=== PATIENT | male | born 1955 | race Caucasian/White ===

== ENCOUNTER 2016-12-16 10:25 | Emergency (ER) | payer BC ==
[2016-12-16 12:04] LABS: Urine Bilirubin Negative (Negative); Urine Glucose Negative (Negative); Urine Nitrite Negative (Negative)
--- NOTE | 2016-12-16 12:15 | RAD ---
HISTORY: Low back pain COMPARISONS: None TECHNIQUE: Multiple contiguous axial CT scans were obtained of the lumbar spine without intravenous contrast, with coronal and sagittal multiplanar reformations. FINDINGS: SPINAL CANAL: Evaluation of the central canal is limited on CT technique; however, there is no obvious canalicular mass or epidural hemorrhage. ALIGNMENT: There is a mild levoscoliotic curvature of the spine. There is grade 1 anterolisthesis of L5 on S1. VERTEBRAL BODIES: There is multilevel anterolateral marginal osteophyte formation. The vertebral bodies are preserved in height. JOINTS: There is facet osteoarthritic change most pronounced at L4-L5 and L5-S1 MUSCULATURE: Unremarkable INTERVERTEBRAL DISCS: There is diffuse loss of intervertebral disc height throughout the spine. AXIAL IMAGES: T11-T12: There is no osseous neural foraminal narrowing or central canal stenosis. T12-L1: There is no osseous neural foraminal narrowing or central canal stenosis. L1-L2: There is no osseous neural foraminal narrowing or central canal stenosis. L2-L3: There is mild disc bulge. There is marginal osteophyte dimension of the neural foramina bilaterally. There is no significant osseous neural foraminal narrowing or central canal stenosis. L3-L4: There is bilateral facet hypertrophy. There is mild disc bulge. There is marginal osteophyte formation at the neural foramina bilaterally. There is mild bilateral neural foraminal narrowing. There is no significant central canal stenosis. L4-L5: There is a broad-based disc bulge/rolled disc. There is bilateral facet hypertrophy. There is severe bilateral neural foraminal narrowing. There is moderate narrowing of the central canal. L5-S1: There is bilateral facet hypertrophy. There is marginal osteophyte formation at the neural foramina bilaterally. There is severe bilateral neural foraminal narrowing. There is no significant central canal stenosis. SOFT TISSUES: The visualized soft tissues of the abdomen are unremarkable. OTHER: None IMPRESSION: 1. DEGENERATIVE DISC DISEASE AND OSTEOARTHRITIS. 2. THERE IS MODERATE NARROWING OF THE CENTRAL CANAL AT L4-L5. 3. THERE IS MULTILEVEL NEURAL FORAMINAL NARROWING DESCRIBED ABOVE, MOST PRONOUNCED AT L4-L5 AND L5-S1
--- NOTE | 2016-12-16 12:18 | ED ---
Back Pain - HPI Summary HPI Summary: Patient presents to ED with midline tenderness over low back around L5 which has progressively gotten worse over 2 weeks. He denies urinary symptoms. History of low back pain which usually resolves with OTC NSAIDS. The pain this morning was 10/10. The last 2 weeks, he has had pain in the low back that radiated to the bilateral hips. Denies other symptoms. No history of kidney stones. Denies upper back or neck pain. Pain is 8/10, constant, worse with sitting, better with leaning forward and standing. Has been taking ibuprofen without relief of symptoms. Denies allergies and is otherwise healthy. Denies bladder or bowel dysfunction. - History of Current Complaint Chief Complaint: EDBackInjuryPain Stated Complaint: BACK PAIN Time Seen by Provider: 12/16/16 11:01 Hx Obtained From: Patient Onset/Duration: Sudden Onset Onset/Duration: Started Hours Ago Timing: Constant Back Pain Location: Is Discrete @ - low back Pain Intensity: 10 Pain Scale Used: 0-10 Numeric Character: Sharp Aggravating Symptom(s): Movement Alleviating Symptom(s): Rest, Position Associated Signs And Symptoms: Positive: Negative - Risk Factors AAA Risk Factors: Negative TAD Risk Factors: Negative Cauda Equina Risk Factors: Negative Epidural Abscess Risk Factors: Negative - Allergies/Home Medications Allergies/Adverse Reactions: Allergies Allergy/AdvReac Type Severity Reaction Status Date / Time Morphine Allergy See Comment Verified 08/20/14 04:55 PMH/Surg Hx/FS Hx/Imm Hx Previously Healthy: Yes Endocrine/Hematology History: Denies: Hx Diabetes, Hx Anemia Cardiovascular History: Reports: Hx Coronary Artery Disease, Hx Hypercholesterolemia Denies: Hx Aneurysm, Hx Angina, Hx Angioplasty, Hx Auto Implanted Cardiovert Defib, Hx Cardiac Arrest, Hx Cardiomegaly, Hx Congenital Heart Disease, Hx Congestive Heart Failure, Hx Hypertension Sensory History: Reports: Hx Contacts or Glasses Denies: Hx Eye Injury, Hx Eye Prosthesis, Hx Glaucoma, Hx Legally Blind, Hx Macular Degeneration, Hx Vision Problem, Hx Deafness, Hx Hearing Aid, Hx Hearing Problem, Other Sensory Impairments Opthamlomology History: Reports: Hx Contacts or Glasses Denies: Hx Eye Injury, Hx Eye Prosthesis, Hx Glaucoma, Hx Legally Blind, Hx Macular Degeneration, Hx Vision Problem, Other Sensory Impairments - Surgical History Surgery Procedure, Year, and Place: stent x1 2014. left knee surg - Immunization History Hx Pertussis Vaccination: No Immunizations Up to Date: Unable to Obtain/Confirm Infectious Disease History: No Infectious Disease History: Denies: Traveled Outside the [place] in Last 30 Days - Social History Occupation: Employed Full-time Lives: With Family Alcohol Use: None Hx Substance Use: No Substance Use Type: Reports: None Hx Tobacco Use: No Smoking Status (MU): Former Smoker Have You Smoked in the Last Year: No Review of Systems Constitutional: Negative Eyes: Negative Cardiovascular: Negative Respiratory: Negative Genitourinary: Negative Positive: no symptoms reported, see HPI Positive: Arthralgia Skin: Negative Neurological: Negative All Other Systems Reviewed And Are Negative: Yes Physical Exam Triage Information Reviewed: Yes Vital Signs On Initial Exam: Initial Vitals Temp 97.3 F 12/16/16 10:30 Completion Of Physical Exam Limited Due To: Dementia Appearance: Positive: Well-Appearing, Well-Nourished Skin: Positive: Warm, Skin Color Reflects Adequate Perfusion Head/Face: Positive: Normal Head/Face Inspection Eyes: Positive: EOMI, SHILPI Neck: Positive: Supple, No Lymphadenopathy Respiratory/Lung Sounds: Positive: Clear to Auscultation, Breath Sounds Present Cardiovascular: Positive: Normal Musculoskeletal: Positive: Pain @ - pain in low back which radiates to the groin bilaterally Neurological: Positive: Sensory/Motor Intact, Alert, Oriented to Person Place, Time Psychiatric: Positive: Normal, Affect/Mood Appropriate - Piper Coma Scale Best Eye Response: 4 - Spontaneous Best Motor Response: 6 - Obeys Commands Best Verbal Response: 5 - Oriented Diagnostics - Vital Signs Vital Signs Temp Pulse Resp BP Pulse Ox 12/16/16 10:33 56 20 125/77 97 12/16/16 10:30 97.3 F - Laboratory Lab Results: Lab Results 12/16/16 Range/Units 11:33 Urine Color Straw Urine Appearance Clear Urine pH 7.0 (5-9) Ur Specific [place] 1.005 L (1.010-1.030) Urine Protein Negative (Negative) Urine Ketones Negative (Negative) Urine Blood Negative (Negative) Urine Nitrate Negative (Negative) Urine Bilirubin Negative (Negative) Urine Urobilinogen Negative (Negative) Ur Leukocyte Esterase Negative (Negative) Urine Glucose Negative (Negative) Lab Statement: Any lab studies that have been ordered have been reviewed, and results considered in the medical decision making process. Back Pain Course/Dx - Course Course Of Treatment: Patient sent to CT of spine for low back pain. IMPRESSION: 1. DEGENERATIVE DISC DISEASE AND OSTEOARTHRITIS. 2. THERE IS MODERATE NARROWING OF THE CENTRAL CANAL AT L4-L5. 3. THERE IS MULTILEVEL NEURAL FORAMINAL NARROWING DESCRIBED ABOVE, MOST PRONOUNCED AT. L4-L5 AND L5-S1. Patient given Referral to Dr. Levine, note for work and rx for pain medication and flexeril. Patient encouraged to follow up willy. - Diagnoses Differential Diagnosis/HQI/PQRI: Positive: Compressive Cord Syndrome, Herniated Disc, Strain, Sprain Provider Diagnoses: Bulging disc Discharge - Discharge Plan Condition: Stable Disposition: HOME Prescriptions: Cyclobenzaprine TAB* [Flexeril TAB*] 10 mg PO BID PRN #20 tab MDD 2 PRN Reason: Pain oxyCODONE/Acetamin 10/325(NF) [Percocet 10/325 (NF)] 1 tab PO Q6H PRN #20 tab MDD 4 PRN Reason: Pain Patient Education Materials: Lower Back Exercises (ED), Lumbar Disc Herniation (ED) Forms: *Work Release Referrals: Karly Becker PA [Primary Care Provider] - Werner Levine MD [Medical Doctor] - Additional Instructions: Dx. back pain/ disc bulge Oxycodone-Acetaminophen - This medication may make you drowsy and do not drive or operate machinery with this medication. Only take this medication for breakthrough pain which is not well controlled with over the counter ibuprofen or tylenol. Flexeril: This medication is a muscle relaxant and can help relieve muscle spasms, muscle strain, or pain sensations. Flexeril can cause side effects that may impair your thinking or reactions. Be careful if you drive or do anything that requires you to be awake and alert. Avoid drinking alcohol, which can increase some of the side effects of Flexeril. Ibuprofen 600mg three times daily with meals for discomfort. Return to ED if symptoms worsen or fail to improve, notice worsening swelling, warmth or redness around the joint, develop fever, or pain is uncontrolled with OTC medications. Moist heat to the area for comfort. Warm showers or baths may improve symptoms. It is important to remain mobile as tolerated to prevent stiffening of the joints and delay healing. Follow up with your PCP. If symptoms remain for > 6 weeks, please seek special medical attention from an orthopedic physician.
[2016-12-16 12:55] VITALS: BP 117/64
== END 2016-12-16 12:57 | disposition home or self-care (01) ==
LOC: ED 10:25
DX: M51.26 Other intervertebral disc displacement, lumbar region (principal); M25.552 Pain in left hip; M25.551 Pain in right hip; I25.10 Atherosclerotic heart disease of native coronary artery without angina pectoris; Z95.1 Presence of aortocoronary bypass graft; E78.00 Pure hypercholesterolemia, unspecified; Z88.5 Allergy status to narcotic agent; Z87.891 Personal history of nicotine dependence
CPT/HCPCS: 72131; 81003; 99282

== ENCOUNTER 2017-03-07 20:34 | Observation (INO) | payer BC ==
[2017-03-07 21:05] LABS: Hematocrit 44 % (42-52); Mean Corpuscular HGB Conc 34 g/dl (31-36); Mean Corpuscular Hemoglobin 30 pg (27-31); Mean Corpuscular Volume 87 fL (80-94); Mean Platelet Volume 8 um3 (7.4-10.4); Red Blood Count 5.03 10^6/ul (4.0-5.4); Red Cell Distribution Width 14 % (10.5-15); White Blood Count 6.9 10^3/ul (3.5-10.8)
[2017-03-07 21:16] LABS: Albumin 4.4 g/dL (3.2-5.2); BUN/Creatinine Ratio 22.2 (8-20); Calcium 9.2 mg/dL (8.6-10.3); EGFR African American 125.4 (>60); EGFR Non-African American 97.5 (>60); Globulin 2.4 g/dL (2-4); Total Bilirubin 0.8 mg/dL (0.2-1.0); Total Protein 6.8 g/dL (6.4-8.9)
[2017-03-07] MEDS ORDERED: Nitroglycerin 2% OINT* 1 GM PAK TOPICAL ONE (21:20)
--- NOTE | 2017-03-07 21:24 | RAD ---
Indication: Chest pain since 0600 hours also pain behind shoulder blade. Comparison: No relevant prior exams available on the [facility] [place]ACS for comparison. Technique: Upright AP 2056 hours Report: Clear lungs and pleural spaces. Negative for pneumothorax. Negative for cardiomegaly. Unremarkable central pulmonary vasculature. Mildly tortuous thoracic aorta. IMPRESSION: No evidence for acute intrathoracic disease.
[2017-03-07] MEDS ORDERED: Ondansetron INJ* 2 MG/ML VIAL IV PRN (22:15)
[2017-03-07] MEDS: Acetaminophen TAB* 325 MG PO PRN (23:30)
--- NOTE | 2017-03-08 00:07 | HP ---
CC: Dr. Rose; Dr. Robins * HISTORY AND PHYSICAL: DATE OF ADMISSION: 03/07/17 PRIMARY CARE PROVIDER: Murali Arzate, previously Dr. Rose. SALESPERSON FLOOR COVERINGS: Dr. Robins. CHIEF COMPLAINT: Chest pain. HISTORY OF PRESENT ILLNESS: Mr. George is a 61-year-old male with a known history of coronary artery disease, status post drug-eluting stent placement to the LAD in 2014, who presents to the emergency room with complaints of chest pain. The patient states that he woke up at approximately 6 a.m. to get ready for a massage that was scheduled for 7:30 a.m. He got up, he went into the shower and while in the shower he developed left-sided chest pain as well as pain in his left scapular region. He denies any radiation of the pain down his arm or up to his jaw. He has associated mild shortness of breath and slight nausea. The patient felt as if he could not eat all day long. Initially he was thinking that this likely represented gas discomfort; however, as is persisted throughout the day, the patient's ultimately convinced him to come to the emergency room for evaluation. His symptoms at this time however similar to his ME in July of 2014. The patient believes that his last stress test was approximately 1 year ago. The patient does state that he continues to have chest pain. The pain lasted all day without any change in symptoms. He did get the massage and that did not make any difference in his pain. PAST MEDICAL HISTORY: 1. Coronary artery disease. 2. Hyperlipidemia. PAST SURGICAL HISTORY: Right knee arthroscopy. MEDICATIONS: 1. Aspirin 81 mg p.o. daily. 2. Brilinta 90 mg p.o. b.i.d. 3. Repatha 140 mg subcutaneous q.2 weeks. 4. Nitroglycerin 0.4 mg SL q.5 minutes p.r.n. chest pain. ALLERGIES: MORPHINE and STATINS. FAMILY HISTORY: Mom at age 74 of heart disease. Dad at age of 89, he thinks that was either heart disease or an aneurysm. The patient had one brother of coronary disease and 3 brothers that are living with coronary disease. SOCIAL HISTORY: The patient is a nonsmoker. He does not drink alcohol. 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 He is . He has 5 adopted children. His , Erin is his healthcare proxy. REVIEW OF SYSTEMS: No fevers, chills. His appetite was poor today. He admits to chest pain as above. No lower extremity edema. No palpitations. No cough. No sputum production. Mild shortness of breath as above. Mild nausea as above. No abdominal pain, constipation, diarrhea, or hematochezia. No hematuria. No dysuria. No focal weakness or sensory loss. No sudden changes in vision. No dysphagia. He aches all over, but this is not uncommon for him. No rashes. No anxiety or depression. PHYSICAL EXAMINATION GENERAL: The patient is a well-developed middle-aged male, sitting in the stretcher, in no acute distress. VITAL SIGNS: Blood pressure 137/83, pulse 56, respiration 15, temp 97.9, O2 sat 96% on room air. HEENT: Pupils are equal, round, and reactive to light. Extraocular muscles are intact. Oropharynx is clear. Oral mucosa is moist. The patient does have slight amount of peeling of the skin on the tip of his nose. He states this is chronic. There is no submandibular, cervical, or supraclavicular adenopathy. Thyroid is not enlarged. No thyroid nodules are noted. The patient wears dentures, upper and lower. PULMONARY: Lungs are clear to auscultation bilaterally. CARDIAC: Normal S1, S2. Heart rate is slightly bradycardic, but regular. I do not appreciate any murmurs. There is minimal left lower extremity edema. ABDOMEN: Bowel sounds are present. Abdomen is soft, nontender, and nondistended. MUSCULOSKELETAL: There is no cyanosis or clubbing of the digits. There is full active range of motion of all 4 extremities. SKIN: Warm and dry. There are no rashes. NEURO: Cranial nerves II through XII are grossly intact. Sensation is intact to light touch throughout. Strength is 5/5 and symmetric in both upper and lower extremities bilaterally. PSYCH: The patient is alert. He is oriented x3. Affect appears appropriate. DIAGNOSTIC STUDIES/LAB DATA: WBC 6.9, hemoglobin 15.0, hematocrit 44, platelets 194. Sodium 138, potassium 4.0, chloride 104, CO2 30, BUN 18, creatinine 0.81, glucose 94, calcium 9.2. Bilirubin 0.8, AST 16, ALT 15, alk phos 60. Troponin 0. Albumin 4.4. Lipase is 30. EKG reveals normal sinus rhythm without any acute ST-T wave abnormalities. Chest x- ray reveals no evidence for acute intrathoracic disease. ASSESSMENT AND PLAN: Mr. George is a 61-year-old male with a known history of coronary artery disease, presents to the emergency room with complaints of unrelenting chest pain that has been present all day with associated back discomfort. 1. Chest pain. I do not believe the patient is having an acute myocardial infarction given his troponin is negative despite having pain for the last 16 hours. It is possible however that he has had progression of his underlying coronary artery disease and likely he would benefit from having a stress test. For now, the patient will be admitted and ruled out for an acute coronary syndrome and serial troponins. Tomorrow morning, we will discuss with Dr. Robins, the patient's tube blower, about having an outpatient stress test versus inpatient stress test on Friday. He will continue on his usual dose of aspirin and Brilinta. D-dimer will be added to rule out pulmonary embolism, though I think this seems unlikely given the patient is active at baseline and has had no recent long distance travel. 2. Hyperlipidemia. The patient takes Repatha as an outpatient. He can resume this upon discharge. 3. DVT prophylaxis. According to the Adult Thrombosis Prophylaxis Risk Factor Assessment Guide, the patient has a total risk factor score of 3 making him high risk. He will be placed on heparin 5000 units subcutaneous q.8 hours. 4. Code status is full and again the patient indicates that his is his healthcare proxy. TIME SPENT: Fifty-five minutes were spent admitting this patient. [id number]/[facility] #: [id number] GISELLE
[2017-03-08 03:33] LABS: HDL Cholesterol 50.3 mg/dL
[2017-03-08] MEDS: Acetaminophen TAB* 325 MG PO PRN (05:41)
[2017-03-08] MEDS ORDERED: Heparin VIAL(*) 5000 UNITS/ML VIAL (FIVE THOUSAND) SUBCUT SCH (06:00)
--- NOTE | 2017-03-08 06:57 | ED ---
Bernice Lopez Rebecca, scribed for Zainab Hamilton MD on 03/07/17 at 2053 . HPI Chest Pain - HPI Summary HPI Summary: Pt is a 61 y/o M who presents to ED c/o CP. Pain began this morning at 0600 upon waking up and is located in the left anterior region with radiation to the left shoulder blade. Pain is currently moderate, ranked 6/10. Pt states that initially it "seemed like gas." Took 3 81 mg ASA approximately 30 minutes PATIENT SUPPORT TECH. Sx aggravated and alleviated by nothing. Additionally c/o mild SOB. reports that he was cutting wood last weekend. Warehouse Administrative Assistant is Dr. Robins. PMHx CAD with MS 1.5 years ago and current pain is slightly similar to that time. FHx CAD. PSHx cardiac stents. Pt reports he typically bruises easily. - History of Current Complaint Chief Complaint: EDChestPainROMI Time Seen by Provider: 03/07/17 20:44 Hx Obtained From: Patient Onset/Duration: Started Hours Ago, Still Present Time of Onset: 06:00 Current Severity: Moderate Pain Intensity: 6 Pain Scale Used: 0-10 Numeric Chest Pain Location: Left Anterior Chest Pain Radiates: Yes Chest Pain Radiates To:: Back - Left Shoulder blade Aggravating Factor(s): Nothing Alleviating Factor(s): Nothing Associated Signs and Symptoms: Positive: Shortness of Breath - Allergy/Home Medications Allergies/Adverse Reactions: Allergies Allergy/AdvReac Type Severity Reaction Status Date / Time Morphine Allergy See Comment Verified 03/07/17 20:43 Statins Allergy See Comment Verified 03/07/17 23:29 Home Medications: Home Medications Evolocumab [Repatha Sureclick] 140 mg SUBCUT .[id number] 03/07/17 [History Confirmed 03/07/17] Nitroglycerin TAB 0.4 MG* 0.4 mg SL .Q5MIN PRN 03/07/17 [History Confirmed 03/07] PMH/Surg Hx/FS Hx/Imm Hx Endocrine/Hematology History: Denies: Hx Diabetes, Hx Anemia Cardiovascular History: Reports: Hx Coronary Artery Disease, Hx Hypercholesterolemia Denies: Hx Aneurysm, Hx Angina, Hx Angioplasty, Hx Auto Implanted Cardiovert Defib, Hx Cardiac Arrest, Hx Cardiomegaly, Hx Congenital Heart Disease, Hx Congestive Heart Failure, Hx Hypertension Sensory History: Reports: Hx Contacts or Glasses Denies: Hx Eye Injury, Hx Eye Prosthesis, Hx Glaucoma, Hx Legally Blind, Hx Macular Degeneration, Hx Vision Problem, Hx Deafness, Hx Hearing Aid, Hx Hearing Problem, Other Sensory Impairments Opthamlomology History: Reports: Hx Contacts or Glasses Denies: Hx Eye Injury, Hx Eye Prosthesis, Hx Glaucoma, Hx Legally Blind, Hx Macular Degeneration, Hx Vision Problem, Other Sensory Impairments - Surgical History Surgery Procedure, Year, and Place: stent x1 2015. left knee surg Infectious Disease History: No Infectious Disease History: Denies: Traveled Outside the [place] in Last 30 Days - Social History Alcohol Use: None Hx Substance Use: No Substance Use Type: Reports: None Hx Tobacco Use: No Smoking Status (MU): Former Smoker Have You Smoked in the Last Year: No Review of Systems Negative: Blurred Vision, Diplopia Negative: Ear Ache Positive: Chest Pain Positive: Shortness Of Breath Negative: Abdominal Pain, Vomiting, Diarrhea Negative: dysuria, hematuria Positive: Other - NEGATIVE: lower back pain and neck pain Negative: Rash, Bruising Negative: Headache All Other Systems Reviewed And Are Negative: Yes Physical Exam - Summary Physical Exam Summary: Appearance: Alert, conversive, nontoxic appearing Skin: Warm, dry, no mottling, no rashes, no contusions HEENT: EOMI, PERRL, moist mucous membranes Neck: No masses on the neck, supple Respiratory: Clear to auscultation, breath sounds present, no rales, no rhonchi , no wheezes Cardiovascular: RRR, pulses are symmetrical in both lower and upper extremities , no midline incision Abdomen: Soft, non-tender Bowel Sounds: Present Musculoskeletal: No CVA tenderness, no obvious deformity, moving all extremities in a grossly normal manner Neurological: A&Ox3, CN II-XII Intact, moving all extremities symmetrically Psychiatric: Normal affect and mood Triage Information Reviewed: Yes Vital Signs On Initial Exam: Initial Vitals Temp Pulse Resp BP Pulse Ox 97.9 F 53 14 163/84 97 03/07/17 20:35 03/07/17 20:35 03/07/17 20:35 03/07/17 20:35 03/07/17 20:35 Vital Signs Reviewed: Yes Diagnostics - Vital Signs Vital Signs Temp Pulse Resp BP Pulse Ox 03/07/17 20:35 97.9 F 53 14 163/84 97 - Laboratory Result Diagrams: 03/07/17 20:50 03/07/17 20:50 Lab Statement: Any lab studies that have been ordered have been reviewed, and results considered in the medical decision making process. - Radiology CXR Xray Interpretation: No Acute Changes - No evidence for acute intrathoracic disease. ED physician reviewed radiology report and agrees. Radiology Interpretation Completed By: Radiologist - EKG 2047 Cardiac Rate: Bradycardia - 53 bpm EKG Rhythm: Sinus Bradycardia ST Segment: Normal EKG Interpretation: No AMI Chest Pain Course/Dx - Course Assessment/Plan: Pt is a 61 y/o M who presents to ED c/o left anterior CP since this morning at 0600 upon waking up, with radiation to the left shoulder blade. Pain is currently moderate, ranked 6/10. Pt states that initially it "seemed like gas." Took 3 81 mg ASA approximately 30 minutes PATIENT SUPPORT TECH. Additionally c/o mild SOB. Warehouse Administrative Assistant is Dr. Robins. PMHx CAD with MS 1.5 years ago and current pain is slightly similar to that time. FHx CAD. PSHx cardiac stents. CXR reveals no acute findings. EKG is sinus joe with no AMI. Blood work within normal limits. He has a strong cardiac PMHx and FHx. Pt took ASA at home, so we gave him NTG in the ED course. Discussed care of pt with Dr. Parsons who accepts pt for admission. Pt will be admitted to hospitalist services. He is agreeable with this plan. Elevated BP noted. - Diagnoses Provider Diagnoses: DVT (deep venous thrombosis) - Provider Notifications Discussed Care Of Patient With: Jennifer Parsons Time Discussed With Above Provider: 21:26 Instructed by Provider To: Other - Accepts pt for admission. Discharge - Discharge Plan Condition: Stable Disposition: ADMITTED TO [facility] The documentation as recorded by the Bernice mayers Rebecca accurately reflects the service I personally performed and the decisions made by , Zainab Hamilton MD.
[2017-03-08] MEDS ORDERED: Ticagrelor* 90 MG TAB PO SCH (09:00)
[2017-03-08] MEDS ORDERED: Aspirin EC Low Dose* 81 MG TAB.EC PO SCH (09:00)
[2017-03-08 15:17] VITALS: BP 110/72
[2017-03-08] MEDS ORDERED: Atorvastatin* 40 MG TAB PO SCH (21:00)
--- NOTE | 2017-03-09 01:46 | DS ---
CC: Dr. Robins; Karly Becker, [facility] DISCHARGE SUMMARY: DATE OF ADMISSION: 03/07/17 DATE OF DISCHARGE: 03/08/17 HISTORY OF PRESENT ILLNESS: This 61-year-old man presented with left-sided chest pain. He got up a t 6 a.m., about a little while later he was taking a shower and developed left-sided chest pain and pain in the left scapular area. The pain really persisted all day and was actually still present wi th small degree at the time of discharge. He did not take nitroglycerin. 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 This sometimes involves strenuous activity. This has never bothered him before. He also occasio amy has frequent walks of a mile or so, which do not bother him either. Otherwise, he really has not had any other chest pain. He does not recall any unusual incident recently. The patient was admitted to the telemetry unit. He had 3 troponin levels, all of which were within normal limits. He had an EKG on the day of admission and shortly before discharge. There are no si gnificant findings. The patient will call back to Julienne's office on Friday morning 03/10/17 to arrange for an expedi jackie stress test. He will not return to work until after the stress test is completed. He was given a work excuse through 03/11/17. FINAL DIAGNOSES: 1. Atypical chest pain. 2. History of coronary artery disease. DISCHARGE MEDICATIONS: 1. Nitroglycerin 0.4 mg sublingual every 5 minutes p.r.n. 2. Evolocumab 140 mg subcu every 2 weeks. 3. Ticagrelor 90 mg b.i.d. 4. Aspirin 81 mg b.i.d. [id number]/[facility] #: [id number]
== END 2017-03-08 15:00 | disposition home or self-care (01) ==
LOC: ED 20:34 → MEDTELE 21:27
PROVIDERS: ADMIT Hospitalist; ATTEND Internal Medicine
DX: R07.89 Other chest pain (principal); R06.02 Shortness of breath; I25.10 Atherosclerotic heart disease of native coronary artery without angina pectoris; R00.1 Bradycardia, unspecified; Z95.5 Presence of coronary angioplasty implant and graft; E78.5 Hyperlipidemia, unspecified; R11.0 Nausea
CPT/HCPCS: 36415; 71010; 80053; 80061; 83690; 84484; 85025; 85379; 93005; 96374; 99284; A9270-GY; G0378; J1644

== ENCOUNTER 2017-10-06 09:58 | Emergency (ER) | payer BC ==
[2017-10-06 10:36] VITALS: BP 142/87
--- NOTE | 2017-10-06 11:43 | RAD ---
HISTORY: Tender proximal and distal fibula, trauma COMPARISONS: None VIEWS: 3, Frontal and lateral views of the left foreleg FINDINGS: BONE DENSITY: Normal. BONES: There is no displaced fracture. JOINTS: There is no arthropathy. ALIGNMENT: There is no dislocation. SOFT TISSUES: Unremarkable. OTHER FINDINGS: None. IMPRESSION: NO ACUTE OSSEOUS INJURY. IF SYMPTOMS PERSIST, RECOMMEND REPEAT IMAGING.
--- NOTE | 2017-10-06 12:03 | UC ---
Knee Pain HPI - HPI Summary HPI Summary: 2 weeks ago pt was walking upstairs while carrying a heavy box. when taking a step up, pt felt a twang in his left knee. pt states that he knew he did something but did not feel pain until that evening. pt's knee was mildly achy for few days but improved until 2 days ago when he had a fall from a chair. during fall he felt knee twist. since then knee has again been achy. radiating to dis 1/3 of fibula. worse with wt bearing/walking(3/10) . better with rest. - History of Current Complaint Chief Complaint: UCLowerExtremity Stated Complaint: LEFT KNEE INJURY Time Seen by Provider: 10/06/17 11:02 Hx Obtained From: Patient Onset/Duration: Sudden Onset, Lasting Weeks, Worse Since - 2 days ago Severity Initially: Moderate Severity Currently: Moderate Pain Intensity: 3 Character: Aching Aggravating Factor(s): Movement, Weight Bearing, Stairs Alleviating Factor(s): Rest Associated Signs And Symptoms: Positive: Negative Able to Bear Weight: Yes - Allergies/Home Medications Allergies/Adverse Reactions: Allergies Allergy/AdvReac Type Severity Reaction Status Date / Time morphine Allergy Hallucinati Verified 10/06/17 10:33 ons Lzlsqqd-Yjz-Xus Reductase Allergy Muscle Ache Verified 10/06/17 10:33 Inhibitor Home Medications: Home Medications Clopidogrel TAB* [Plavix TAB*] 75 mg PO DAILY 10/06/17 [History Confirmed ] PMH/Surg Hx/FS Hx/Imm Hx Cardiovascular History: Cardiac Disease, Myocardial Infarction - Surgical History Surgical History: Yes Surgery Procedure, Year, and Place: stent x1 2014. left knee surg - Family History Known Family History: Positive: Cardiac Disease, Hypertension, Diabetes - Social History Lives: With Family Alcohol Use: None Substance Use Type: None Smoking Status (MU): Former Smoker Have You Smoked in the Last Year: No When Did the Patient Quit Smoking/Using Tobacco: 30 years ago - Immunization History Most Recent Influenza Vaccination: has not received Most Recent Tetanus Shot: up to date Most Recent Pneumonia Vaccination: has not received Review of Systems Constitutional: Negative Skin: Negative Respiratory: Negative Cardiovascular: Negative Gastrointestinal: Negative Motor: Negative Neurovascular: Negative Musculoskeletal: Other: - knee pain Neurological: Negative Psychological: Negative All Other Systems Reviewed And Are Negative: Yes Physical Exam Triage Information Reviewed: Yes Appearance: Well-Appearing, No Pain Distress, Obese Vital Signs: Initial Vital Signs Temp 97.3 F 10/06/17 10:28 Pulse 58 10/06/17 10:28 Resp 17 10/06/17 10:28 BP 142/87 10/06/17 10:28 Pulse Ox 98 10/06/17 10:28 Vital Signs Reviewed: Yes Eyes: Positive: Conjunctiva Clear. Negative: Discharge ENT: Positive: Hearing grossly normal. Negative: Muffled voice, Hoarse voice Neck exam: Normal Respiratory: Positive: Lungs clear, Normal breath sounds, No respiratory distress, No accessory muscle use Cardiovascular: Positive: RRR, No Murmur, Pulses Normal Musculoskeletal: Positive: Other: - normal inspection/rom. tender to palpation over lcl and mcl, and distal 1/3 if fibular shaft. no lig laxity. neg beulah' s Neurological: Positive: Alert, Muscle Tone Normal Psychological: Positive: Age Appropriate Behavior Skin Exam: Normal Knee Pain Course/Dx - Differential Dx/Diagnosis Provider Diagnoses: knee sprain Discharge - Sign-Out/Discharge Documenting (check all that apply): Discharge/Admit/Transfer - Discharge Plan Condition: Stable Disposition: HOME Patient Education Materials: Knee Sprain (ED), Knee Immobilizer (ED) Referrals: Karly Becker PA [Primary Care Provider] - (Follow up in 3-5 days for re- evaluation.) - Billing Disposition and Condition Condition: STABLE Disposition: HOME
== END 2017-10-06 12:09 | disposition home or self-care (01) ==
LOC: UCCORT 09:58
DX: S83.92XA Sprain of unspecified site of left knee, initial encounter (principal); X50.0XXA Overexertion from strenuous movement or load, initial encounter; Y93.01 Activity, walking, marching and hiking; Y92.9 Unspecified place or not applicable; W08.XXXA Fall from other furniture, initial encounter; Y93.9 Activity, unspecified; Z88.5 Allergy status to narcotic agent; Z88.8 Allergy status to other drugs, medicaments and biological substances
CPT/HCPCS: 99212; G0463

== ENCOUNTER 2017-11-20 07:13 | Observation (INO) | payer BC ==
[2017-11-20 08:16] LABS: ABS Basophils 0.1 10^3/ul (0-0.2); ABS Eosinophils 0.1 10^3/ul (0-0.6); ABS Lymphocytes 1.4 10^3/ul (1.0-4.8); ABS Monocytes 0.6 10^3/ul (0-0.8); ABS Neutrophils 3.3 10^3/ul (1.5-7.7); ABS Nucleated RBC 0 10^3/ul; Eosinophil % 2.5 % (0-6); Hematocrit 42 % (42-52); Hemoglobin 14.6 g/dl (14.0-18.0); Lymphocyte % 24.8 % (25-47); Mean Corpuscular HGB Conc 35 g/dl (31-36); Mean Corpuscular Hemoglobin 30 pg (27-31); Mean Corpuscular Volume 86 fL (80-94); Mean Platelet Volume 7.8 um3 (7.4-10.4); Nucleated Red Blood Cells % 0.1; Platelet Count 165 10^3/ul (150-450); Red Blood Count 4.94 10^6/ul (4.00-5.40); Red Cell Distribution Width 13 % (10.5-15); White Blood Count 5.5 10^3/ul (3.5-10.8)
[2017-11-20 08:23] LABS: INR 0.85 (0.77-1.02)
[2017-11-20 08:28] LABS: EGFR Non-African American 86.4 (>60)
--- NOTE | 2017-11-20 08:37 | RAD ---
INDICATION: Left arm paresthesias COMPARISON: None TECHNIQUE: Noncontrast axial source images were acquired from the skull base to the vertex. FINDINGS: Ventricles/sulci: The ventricles and cisterns are normal in size and configuration for age. Brain parenchyma: There is no focal parenchymal finding, evidence of intracranial mass, or intracranial mass effect. Intracranial hemorrhage:None. Extra-axial spaces: There are no abnormal extra axial fluid collections or evidence of extra-axial mass. Calvarium: There is no calvarial fracture or other calvarial abnormality. Scalp: There is no evidence of scalp or extracalvarial soft tissue abnormality. Paranasal sinuses/mastoid: The paranasal sinuses and mastoid air cells are clear. Other: None. IMPRESSION: NEGATIVE NONCONTRAST CT EXAMINATION
--- NOTE | 2017-11-20 09:09 | RAD ---
INDICATION: Chest pain COMPARISON: March 07, 2017 TECHNIQUE: An AP portable view obtained at 0853 hours is submitted. FINDINGS: Bones/Soft Tissues: There are no acute bony findings. Cardiomediastinal: The cardiomediastinal silhouette is normal. Lungs: There are no infiltrates. Pleura: There are no pleural effusions. Other: None IMPRESSION: NO ACTIVE DISEASE.
[2017-11-20] MEDS ORDERED: Al Hydrox/Mg Hydrox/Simet LIQ* 30 ML UDC PO PRN (12:06)
[2017-11-20] MEDS ORDERED: Ondansetron INJ* 2 MG/ML VIAL IV PRN (12:06)
[2017-11-20] MEDS ORDERED: Acetaminophen TAB* 325 MG PO PRN (12:06)
[2017-11-20] MEDS ORDERED: Magnesium Hydroxide LIQ* 30 ML UDC PO PRN (12:06)
[2017-11-20] MEDS ORDERED: Morphine INJ* 2 MG/ML 1 ML CARPUJECT IV PRN (12:06)
[2017-11-20] MEDS ORDERED: Albuterol 2.5 MG/3 ML NEB.SOL* (0.083%) INH PRN (12:06)
[2017-11-20] MEDS ORDERED: Nitroglycerin TAB 0.4 MG* 0.4 MG TAB SL PRN (12:12)
[2017-11-20] MEDS ORDERED: NS 0.9% 1000 ML* 1,000 ML IV SCH (12:15)
--- NOTE | 2017-11-20 13:34 | RAD ---
Indication: Weakness. INDICATION: Weakness for 2 weeks. Sagittal and axial T1, axial T2, FLAIR, diffusion and susceptibility weighted images of the brain were obtained. Ventricular structures are midline. No midline shift is noted. The extraction spaces are unremarkable. There is no evidence of intracranial mass or hemorrhage. No other high or low signal lesions are identified. No restriction of diffusion is noted. No evidence of susceptibility artifact is noted. The FLAIR images demonstrate no evidence of vasogenic edema. There may be tiny punctate areas of some cortical white matter signal abnormalities which are nonspecific. Orbits and paranasal sinuses as well as mastoid air cells are unremarkable. IMPRESSION: No evidence of restriction of diffusion is noted. Punctate nonspecific areas of signal abnormality in the subcortical white matter scattered in both cerebral hemispheres.
[2017-11-20] MEDS ORDERED: Perflutren Lipid Microsphere* 3 ML VIAL ONE (15:04)
--- NOTE | 2017-11-20 15:07 | HP ---
AMENDED REPORT NOW INCLUDES COSIGNER DESIGNATION - ESIGNED BEFORE ADJUSTMENT CC: Dr. Robins.* ADMISSION HISTORY AND PHYSICAL: DATE OF ADMISSION: 11/20/17 PATIENT OF ATTENDING HOSPITALIST: Dr. Von Judge.* (DICTATED BY ELOY MCCURDY) PRIMARY CARE PROVIDER: Murali Arzate. ELECTROLOG OPERATOR: Dr. Robins. CHIEF COMPLAINT: Chest pain and left arm weakness. HISTORY OF PRESENT ILLNESS: Mr. George is a pleasant 61-year-old gentleman who carries past medical history significant for coronary artery disease for which he had cardiac catheterization with drug-eluting stent placement to the LAD back in 2014, who presented to the emergency room earlier this morning with complaints of chest pain to the left side that started last night. The patient notes that his chest pain is not sharp or similar to prior episodes of suspected MIs; however, it is more like chest tightness associated with some dyspnea and also feeling a little bit of palpitation. He also came complaining of left arm numbness and tingling for the past 2 weeks with associated weakness ; however, has been able to move his arm and working with no complaints. He denies any shuffled gait, syncope, headache, double vision, drooling, or slurred speech. He has no history of TIAs or strokes in the past. The patient was seen last in the hospital back in February of last year presenting with similar complaints of chest pain, for which he had a cardiac workup and discharged the following day to follow up with Dr. Robins for an outpatient stress test. The patient eventually went to [facility] in [place] and had a stress test done last fall that he reports was negative. I do not have any additional records from [facility] to provide any details but again, the patient reports having a good stress test last fall. He has seen Dr. Robins in the past and actually is scheduled to see him for a followup next week. He has been maintained on aspirin and Plavix since his cardiac catheterization with 2 stents placed 3 years ago. During his ED evaluation, the patient was noted to actually have slight bradycardia with heart rate in the 50s; however, his EKG showed no evidence of ST changes or any suspicious cardiac ischemia. He had laboratory workup that revealed a flat troponin. He had a CT scan of the brain that revealed no evidence of hemorrhage or acute changes and also an MRI of the brain was ordered and the results are pending at the time of admission. He denies any significant chest pain at this time. He did not take any nitro and did not require any pain medication in the ED. Given his cardiac history as well as the new onset of his left arm numbness, weakness, and tingling that seems to be more intermittent, we were asked to see the patient for further evaluation and to consider an observation admission for further cardiac workup. The patient is very vague upon questioning more about his left upper extremity symptoms. 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 It appears that his weakness is more of muscular origin since he has been able to move his upper extremity, but sometimes reports weakness if not used. PAST MEDICAL HISTORY: As mentioned above, significant for: 1. Coronary artery disease with previous cardiac catheterization and 2 stents placement back in 2014. 2. Hyperlipidemia. PAST SURGICAL HISTORY: Significant for right knee arthroscopy. MEDICATIONS: His medications at home include: 1. Norvasc 2.5 mg p.o. daily. 2. Aspirin 81 mg p.o. daily. 3. Plavix 75 mg p.o. daily. 4. Repatha 140 mg subcu injection every 2 weeks. ALLERGIES: He is allergic to MORPHINE and STATIN. SOCIAL HISTORY: The patient is nonsmoker who does not drink alcohol. 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 He is and has 5 adopted children, all grown up and his , Erin is the healthcare proxy carrier. FAMILY HISTORY: Significant for heart disease in his mother who at age 74 , and also his father has history of heart disease, possibly aneurysm. He also has a brother who is from coronary artery disease and 3 other brothers who have history of coronary artery disease as well. REVIEW OF SYSTEMS: See HPI. Otherwise, 14-point reviews of systems were evaluated and they were essentially negative. PHYSICAL EXAMINATION GENERAL: He is a pleasant healthy-appearing, upper middle aged gentleman, in no acute distress or discomfort at the time of admission. VITAL SIGNS: Revealed a heart rate of 52, temperature of 98.2, blood pressure of 128/87, respirations of 12 with O2 sat of 95% on room air. HEENT: Head is normocephalic, atraumatic. Sclerae anicteric. PERRLA. EOMs intact. Oropharynx is pink and moist. NECK: Supple. Trachea midline. No cervical adenopathy, thyromegaly, or JVD. LUNGS: Clear to auscultation bilaterally. HEART: Regular rate and rhythm. Normal S1 and S2 without rubs, murmurs, or gallops. BACK: With normal curvature. No CVA tenderness. ABDOMEN: Soft, nontender, and nondistended. No hernias, masses, or hepatosplenomegaly. RECTAL: Exam deferred at this time. EXTREMITIES: Without cyanosis, clubbing, or edema. NEUROLOGIC: He is alert and oriented x4, and neurological exam was grossly normal. Handgrip was equal bilaterally. His sensation was intact throughout. Tongue was midline. LABORATORY WORKUP: CBC with white count of 5500, hemoglobin 14.6, hematocrit 42, and platelets of 165. Chemistry with sodium of 140, potassium 3.9, chloride 107, CO2 27, BUN 19, and creatinine of 0.9; glucose is 103, lactic acid 1.0, magnesium 1.9. LFTs within normal limits, and troponin was 0.00. His TSH is 1.31. ACCESSORY DIAGNOSTIC DATA: EKG showed sinus bradycardia, no evidence of ST changes. Chest x-ray with no acute findings; and brain CT with no evidence of intracranial hemorrhage noted. He also will have a brain MRI that is pending at the time of admission. IMPRESSION: A 61-year-old gentleman with past medical history significant for coronary artery disease and hyperlipidemia, who had cardiac catheterization with 2 drug-eluting stents placement to the left anterior descending artery back in 2014 as well as recent stress test last fall at [facility] that apparently was negative, who presented to the emergency room today with a 1-day history of intermittent left chest pain with associated palpitations and a 2 weeks' history of left upper extremity weakness, numbness, and tingling. ASSESSMENT AND PLAN: 1. Chest pain. The patient does not appear to have any evidence of acute myocardial infarction at this point given his EKG and troponin findings; however , given his significant coronary artery disease history, he will be admitted for observation at the telemetry unit. We will obtain a trending troponin, repeat EKG in the morning, and likely to repeat his stress test in the morning as well. The case will be discussed with Dr. Robins at some point if there is any positive finding. The patient has an appointment with him next week for a followup that he would likely to keep if all workup is negative and he ends up being discharged to home tomorrow. I will also check a D-dimer today to rule out any possibility of pulmonary embolism; however, the patient only reports occasional dyspnea with exertion, but not at rest and he has been having good oxygen saturation during his stay in the emergency department. 2. Left upper extremity weakness, numbness, and tingling. This issue has been going on for 2 weeks and very intermittent and vague in presentation. I do not believe that the patient has experienced any evidence of stroke or transient ischemic attacks. He uses his upper extremities during work for manual labor including heavy weightlifting. He is able to move his arm and lift weight; however, during rest sometimes, he feels some numbness and tingling in the ends. He denies any history of diabetes and his blood glucose is 103 at fasting level. I do not suspect any neurological deficit and I performed a quick NIH Stroke Scale with a score of [address] scan of the brain is negative and we will await the MRI findings. I will also add a neurological check for the patient to monitor him closely, to see if there are any changes overnight. 3. Hyperlipidemia. The patient is taking Repatha as an outpatient and will resume it on discharge. 4. DVT prophylaxis. He is at moderate risk at this time. We will cover him with sequential compression devices for now. 5. Coronary artery disease. I will continue the patient on aspirin for now and I will review keeping him on Plavix with my attending, since there might be possibility for an intervention tomorrow if he had a positive stress test. 6. Code status. He is a full code and his is the healthcare proxy carrier. 7. Disposition. Observation admission to Telemetry for trending troponins, repeat EKG, and stress test in the morning. TIME SPENT: Approximately 60 minutes were spent admitting this patient, with greater than 50% on [id number] taking history and performing physical exam. ELOY MCCURDY [id number]/[facility] #: [id number] GISELLE
--- NOTE | 2017-11-20 18:21 | ECHO ---
Patient: SUSU FISHER [facility] Rec#: [id number] : 1955 Date: 11/20/2017 Age: 61y Height: 172.72 cm / 68.0 in Weight: 113.4 kg / 249.9 lbs Sex: M BSA: 2.25 Room#: [facility] Admit Date#: 11/20/2017 Type: Inpatient Referring: Houston Pope Reading: Sabas Landon MD Astrophysics Professor: Amparo Gamble RDCS CC: Deborah Williamson Transthoracic Echocardiogram Indication: Chest Pain BP: 119/81 HR: 73 Rhythm: NSR Findings History: HLD, CAD, s/p PCI, former smoker. Technical Comments: The study is technically limited due to patient body habitus. Completed at 1600. Left Ventricle: The left ventricular chamber size is normal. Mild concentric left ventricular hypertrophy is observed. There is normal left ventricular systolic function. The estimated ejection fraction is 60-65%. There is septal flattening of the interventricular septum consistent with right ventricular volume or pressure overload. Abnormal left ventricular diastolic function is observed. Abnormal left ventricular diastolic filling is observed, consistent with impaired relaxation. Left Atrium: The left atrium is mildly dilated. Right Ventricle: Moderator Band present. The right ventricle is moderately dilated. The right ventricular global systolic function is low normal. Right Atrium: The right atrium is mildly dilated. Aortic Valve: The aortic valve is trileaflet. The aortic valve leaflets are mildly thickened. There is no evidence of aortic regurgitation. There is no evidence of aortic stenosis. Mitral Valve: The mitral valve leaflets are mildly thickened. There is a trace of mitral regurgitation. There is no evidence of mitral stenosis. Tricuspid Valve: The tricuspid valve leaflets are normal. There is trace to mild tricuspid regurgitation. The right ventricular systolic pressure is estimated at 24 mmHg. There is evidence that pulmonary hypertension may be underestimated. There is no tricuspid stenosis. Pulmonic Valve: The pulmonic valve appears normal. There is a trace pulmonic regurgitation. There is no pulmonic stenosis. Pericardium: There is no significant pericardial effusion. A pericardial fat pad is visualized. Aorta: There is no dilatation of the ascending aorta. There is no dilatation of the aortic arch. The aortic root is normal in size. Pulmonary Artery: The main pulmonary artery appears normal. Venous: The inferior vena cava appears normal in size. There is a greater than 50% respiratory change in the inferior vena cava dimension. Contrast: Definity was used to optimize study. 5 mL of diluted Definity was utilized. Intravenous contrast was used to enhance endocardial border definition. Conclusions The study is technically limited due to patient body habitus. Mild concentric left ventricular hypertrophy is observed. The estimated ejection fraction is 60-65%. There is septal flattening of the interventricular septum consistent with right ventricular volume or pressure overload. Abnormal left ventricular diastolic filling is observed, consistent with impaired relaxation. The left atrium is mildly dilated. The right ventricle is moderately dilated. The right ventricular global systolic function is low normal. The right atrium is mildly dilated. There is a trace of mitral regurgitation. There is trace to mild tricuspid regurgitation. Similar to 07/2014. Measurements Name Value Normal Range RVIDd (AP) 2D 3.7 cm (0.9 - 2.6) RVDdMajor (2D) 5.9 cm (2.2 - 4.4) RAd ISD 4CH 5.3 cm (3.4 - 4.9) RA (A4C)W 5.1 cm (2.9 - 4.6) IVSd (2D) 1.2 cm (0.6 - 1) LVPWd (2D) 1.2 cm (0.6 - 1) LVIDd (2D) 4.4 cm (3.6 - 5.4) LVIDs (2D) 2.3 cm - LV FS (2D) 49 % (25 - 45) Aortic Annulus 2 cm (1.4 - 2.6) Ao root diameter (2D) 3 cm (2.1 - 3.5) Ascending Ao 3 cm (2.1 - 3.4) Aortic arch 2.6 cm (1.8 - 3.4) LA dimension (AP) 2D 4.6 cm (2.3 - 3.8) LAd ISD 4CH 5.7 cm (2.9 - 5.3) LA ISD 4CH W 4.6 cm (2.5 - 4.5) Name Value Normal Range LA ESV SP 4CH (A/L) 70 ml - LA ESV SP 2CH (A/L) 56 ml - LA ESV BP (A/L) 66 ml - LA ESV BP (A/L) index 29 ml/m2 - LA ESV SP 4CH (MOD) 65 ml - LA ESV SP 2CH (MOD) 55 ml - Name Value Normal Range MV E-wave Vmax 0.65 m/sec - MV deceleration time 289 msec - MV A-wave Vmax 0.94 m/sec - MV E:A ratio 0.69 ratio - LV septal e' Vmax 0.08 m/sec - LV lateral e' Vmax 0.09 m/sec - LV E:e' septal ratio 8.13 ratio - LV E:e' lateral ratio 7.22 ratio - Name Value Normal Range AV Vmax 1.4 m/sec - AV VTI 26.27 cm - AV peak gradient 7.56 mmHg - AV mean gradient 4.26 mmHg - LVOT Vmax 0.93 m/sec - LVOT VTI 17.42 cm - LVOT peak gradient 3.47 mmHg - LVOT mean gradient 1.86 mmHg - OLEG Vmax 1.1 m/sec - Name Value Normal Range TR Vmax 2.3 m/sec - TR peak gradient 21 mmHg - RAP 3 mmHg - RVSP 24 mmHg - IVC diameter 1.8 cm - Name Value Normal Range PV Vmax 1.22 m/sec - PV peak gradient 6.04 mmHg -
--- NOTE | 2017-11-20 18:33 | ED ---
Rolando Lopez Angela, scribed for Jevon Mayo MD on 11/20/17 at 0737 . HPI Chest Pain - HPI Summary HPI Summary: This pt is a 61 y/o male presenting to [facility] c/o left sided chest pain since last night. He describes chest pain as tightness and pressure. Pt also reports heart palpitations, characterized as fast heart rate since 4 days ago. He states numbness and tingling on his left side, primarily in his left arm, since a couple of weeks ago. He notes this does not prevent him from doing anything, although he did sprain his left knee 2 months ago and when he steps he feels "like there's a spring in it." Additionally reports SOB and diaphoresis. Denies nausea, dizziness, lightheadedness, fever. He notes that if he drinks coffee his symptoms are aggravated. PMHx includes MS (4 years ago) s/p stent. Pt is currently on Plavix, aspirin, Norvasc, and Rebatha . 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 His PCP is in [place]. FHx of cardiac disease in mother and brothers (around age 50). - History of Current Complaint Hx Obtained From: Patient Onset/Duration: Started Days Ago, Still Present Timing: Lasting Days Current Severity: Mild Pain Intensity: 3 Pain Scale Used: 0-10 Numeric Chest Pain Location: Left Anterior Chest Pain Radiates: No Character: Pressure/Squeezing - Pressure, Tightness Aggravating Factor(s): Nothing Alleviating Factor(s): Nothing Associated Signs and Symptoms: Positive: Chest Pain, Numbness, Tingling, Shortness of Breath, Diaphoresis, Palpitations. Negative: Dizziness, Fever, Lightheadedness, Nausea - Additional Pertinent History Primary Care Physician: [id number] - Allergy/Home Medications Allergies/Adverse Reactions: Allergies Allergy/AdvReac Type Severity Reaction Status Date / Time morphine Allergy Hallucinati Verified 11/20/17 07:27 ons [id number]-Iuz Reductase Allergy Muscle Ache Verified 11/20/17 07:27 Inhibitor Home Medications: Home Medications Amlodipine Besylate [Norvasc 2.5 mg tab] 2.5 mg PO DAILY 11/20/17 [History Confirmed 11/20/17] PMH/Surg Hx/FS Hx/Imm Hx Endocrine/Hematology History: Denies: Hx Diabetes, Hx Anemia Cardiovascular History: Reports: Hx Coronary Artery Disease, Hx Hypercholesterolemia, Hx Myocardial Infarction Denies: Hx Aneurysm, Hx Angina, Hx Angioplasty, Hx Auto Implanted Cardiovert Defib, Hx Cardiac Arrest, Hx Cardiomegaly, Hx Congenital Heart Disease, Hx Congestive Heart Failure, Hx Hypertension Respiratory History: Denies: Hx Sleep Apnea Sensory History: Reports: Hx Contacts or Glasses Denies: Hx Cataracts, Hx Eye Injury, Hx Eye Prosthesis, Hx Glaucoma, Hx Legally Blind, Hx Macular Degeneration, Hx Vision Problem, Hx Deafness, Hx Hearing Aid, Hx Hearing Problem, Other Sensory Impairments Opthamlomology History: Reports: Hx Contacts or Glasses Denies: Hx Cataracts, Hx Eye Injury, Hx Eye Prosthesis, Hx Glaucoma, Hx Legally Blind, Hx Macular Degeneration, Hx Vision Problem, Other Sensory Impairments - Surgical History Surgery Procedure, Year, and Place: stent x1 2014. left knee surg - Immunization History Date of Tetanus Vaccine: unk Date of Influenza Vaccine: none Infectious Disease History: No Infectious Disease History: Denies: Hx Clostridium Difficile, Hx Hepatitis, Traveled Outside the [place] in Last 30 Days - Family History Known Family History: Positive: Cardiac Disease - Mother and brothers. , Hypertension, Diabetes - Social History Alcohol Use: None Hx Substance Use: No Substance Use Type: Reports: None Hx Tobacco Use: No Smoking Status (MU): Former Smoker Have You Smoked in the Last Year: No Review of Systems Positive: Skin Diaphoresis. Negative: Fever, Chills Positive: Palpitations, Chest Pain Positive: Shortness Of Breath Negative: Nausea Neurological: Other - NEG: dizziness, lightheadedness Positive: Paresthesia, Numbness All Other Systems Reviewed And Are Negative: Yes Physical Exam - Summary Physical Exam Summary: Appearance: The patient is well-nourished in no acute distress and in no acute pain. Skin: The skin is warm and dry and skin color reflects adequate perfusion. HEENT: The head is normocephalic and atraumatic. The pupils are equal and reactive. The conjunctivae are clear and without drainage. Nares are patent and without drainage. Mouth reveals moist mucous membranes and the throat is without erythema and exudate. The external ears are intact. The ear canals are patent and without drainage. The tympanic membranes are intact. Neck: the neck is supple with full range of motion and non-tender. There are no carotid bruits. There is no neck vein distension. Respiratory: Chest is non-tender. Lungs are clear to auscultation and breath sounds are symmetrical and equal. Cardiovascular: Heart is regular rate and rhythm. There is no murmur or rub auscultated. There is no peripheral edema and pulses are symmetrical and equal. Abdomen: The abdomen is soft and non-tender. There are normal bowel sounds heard in all four quadrants and there is no organomegaly palpated. Musculoskeletal: There is no back tenderness noted. Extremities are non-tender with full range of motion. There is good capillary refill. There is no peripheral edema or calf tenderness elicited. Neurological: Patient is alert and oriented to person, place and time. Psychiatric: The patient has an appropriate affect and does not exhibit any anxiety or depression. Triage Information Reviewed: Yes Vital Signs On Initial Exam: Initial Vitals Temp Pulse Resp BP Pulse Ox 98.2 F 60 18 152/85 95 11/20/17 07:22 11/20/17 07:22 11/20/17 07:22 11/20/17 07:22 11/20/17 07:22 Vital Signs Reviewed: Yes Diagnostics - Vital Signs Vital Signs Temp Pulse Resp BP Pulse Ox 11/20/17 07:22 98.2 F 60 18 152/85 95 - Laboratory Lab Results: Lab Results 11/20/17 11/20/17 11/20/17 Range/Units 08:02 08:02 08:02 WBC 5.5 (3.5-10.8) 10^3/ul RBC 4.94 (4.00-5.40) 10^6/ul Hgb 14.6 (14.0-18.0) g/dl Hct 42 (42-52) % MCV 86 (80-94) fL MCH 30 (27-31) pg MCHC 35 (31-36) g/dl RDW 13 (10.5-15) % Plt Count 165 (150-450) 10^3/ul MPV 7.8 (7.4-10.4) um3 Neut % (Auto) 60.2 (38-83) % Lymph % (Auto) 24.8 L (25-47) % [place] % (Auto) 11.4 H (0-7) % Eos % (Auto) 2.5 (0-6) % Baso % (Auto) 1.1 (0-2) % Absolute Neuts (auto) 3.3 (1.5-7.7) 10^3/ul Absolute Lymphs (auto) 1.4 (1.0-4.8) 10^3/ul Absolute Monos (auto) 0.6 (0-0.8) 10^3/ul Absolute Eos (auto) 0.1 (0-0.6) 10^3/ul Absolute Basos (auto) 0.1 (0-0.2) 10^3/ul Absolute Nucleated RBC 0 10^3/ul Nucleated RBC % 0.1 INR (Anticoag Therapy) 0.85 (0.77-1.02) Sodium 140 (135-145) mmol/L Potassium 3.9 (3.5-5.0) mmol/L Chloride 107 (101-111) mmol/L Carbon Dioxide 27 (22-32) mmol/L Anion Gap 6 (2-11) mmol/L BUN 19 (6-24) mg/dL Creatinine 0.90 (0.67-1.17) mg/dL Est GFR ( Amer) 104.5 (>60) Est GFR (Non-Af Amer) 86.4 (>60) BUN/Creatinine Ratio 21.1 H (8-20) Glucose 103 H (70-100) mg/dL Lactic Acid (0.5-2.0) mmol/L Calcium 9.1 (8.6-10.3) mg/dL Magnesium 1.9 (1.9-2.7) mg/dL Total Bilirubin 0.90 (0.2-1.0) mg/dL AST 15 (13-39) U/L ALT 17 (7-52) U/L Alkaline Phosphatase 47 (34-104) U/L Troponin I 0.00 (<0.04) ng/mL Total Protein 6.4 (6.4-8.9) g/dL Albumin 4.1 (3.2-5.2) g/dL Globulin 2.3 (2-4) g/dL Albumin/Globulin Ratio 1.8 (1-3) TSH 1.31 (0.34-5.60) mcIU/mL 11/20/17 Range/Units 08:02 WBC (3.5-10.8) 10^3/ul RBC (4.00-5.40) 10^6/ul Hgb (14.0-18.0) g/dl Hct (42-52) % MCV (80-94) fL MCH (27-31) pg MCHC (31-36) g/dl RDW (10.5-15) % Plt Count (150-450) 10^3/ul MPV (7.4-10.4) um3 Neut % (Auto) (38-83) % Lymph % (Auto) (25-47) % [place] % (Auto) (0-7) % Eos % (Auto) (0-6) % Baso % (Auto) (0-2) % Absolute Neuts (auto) (1.5-7.7) 10^3/ul Absolute Lymphs (auto) (1.0-4.8) 10^3/ul Absolute Monos (auto) (0-0.8) 10^3/ul Absolute Eos (auto) (0-0.6) 10^3/ul Absolute Basos (auto) (0-0.2) 10^3/ul Absolute Nucleated RBC 10^3/ul Nucleated RBC % INR (Anticoag Therapy) (0.77-1.02) Sodium (135-145) mmol/L Potassium (3.5-5.0) mmol/L Chloride (101-111) mmol/L Carbon Dioxide (22-32) mmol/L Anion Gap (2-11) mmol/L BUN (6-24) mg/dL Creatinine (0.67-1.17) mg/dL Est GFR ( Amer) (>60) Est GFR (Non-Af Amer) (>60) BUN/Creatinine Ratio (8-20) Glucose (70-100) mg/dL Lactic Acid 1.0 (0.5-2.0) mmol/L Calcium (8.6-10.3) mg/dL Magnesium (1.9-2.7) mg/dL Total Bilirubin (0.2-1.0) mg/dL AST (13-39) U/L ALT (7-52) U/L Alkaline Phosphatase (34-104) U/L Troponin I (<0.04) ng/mL Total Protein (6.4-8.9) g/dL Albumin (3.2-5.2) g/dL Globulin (2-4) g/dL Albumin/Globulin Ratio (1-3) TSH (0.34-5.60) mcIU/mL Result Diagrams: 11/20/17 08:02 11/20/17 08:02 Lab Statement: Any lab studies that have been ordered have been reviewed, and results considered in the medical decision making process. - Radiology Chest XR Xray Interpretation: No Acute Changes - IMPRESSION: No active disease. Dr. Mayo has reviewed this radiology report. Radiology Interpretation Completed By: Radiologist - CT Brain CT CT Interpretation: No Acute Changes - IMPRESSION: Negative noncontrast CT examination. Dr. Mayo has reviewed this radiology report. CT Interpretation Completed By: Radiologist - EKG 07:20 Cardiac Rate: Bradycardia - at 53 bpm EKG Rhythm: Sinus Bradycardia - Additional Comments Diagnostic Additional Comments: MRI Brain, as read by radiologist IMPRESSION: No evidence of restriction of diffusion is noted. Punctate nonspecific areas of signal abnormality in the subcortical white matter scattered in both cerebral hemispheres. Dr. Mayo has reviewed this radiology report. Chest Pain Course/Dx - Course Course Of Treatment: Mr. George presents with a worrisome story of intermittent palpitations over the last couple of weeks and also with the vague concern for left sided symptoms. He has a very difficult time elaborating withdrawal with his left side but states that it is definitely not normal. My concern is of course that he had a dysrhythmia with a possible small stroke although I cannot find any evidence on physical exam. The hospitalist were contacted for consideration of admission and further workup. - Diagnoses Provider Diagnoses: Intermittent palpitations, TIA (transient ischemic attack) - Provider Notifications Discussed Care Of Patient With: Houston Pope Time Discussed With Above Provider: 12:00 Instructed by Provider To: Other - I discussed care with ELOY Pope, under Dr. Judge's hospitalist services. They accepted the pt for admission. Discharge - Sign-Out/Discharge Documenting (check all that apply): Discharge/Admit/Transfer - Admit - Discharge Plan Condition: Stable Disposition: ADMITTED TO [facility] - Billing Disposition and Condition Condition: STABLE Disposition: Admitted to [facility] The documentation as recorded by the Rolando mayers Angela accurately reflects the service I personally performed and the decisions made by , Jevon Mayo MD.
[2017-11-20] MEDS ORDERED: amLODIPine TAB* 5 MG PO SCH (21:00)
[2017-11-20] MEDS ORDERED: Aspirin EC TAB* 81 MG TAB.EC PO SCH (21:00)
[2017-11-20] MEDS ORDERED: Clopidogrel TAB* 75 MG PO SCH (21:00)
[2017-11-21 06:15] LABS: ABS Basophils 0 10^3/ul (0-0.2); ABS Eosinophils 0.2 10^3/ul (0-0.6); ABS Lymphocytes 1.4 10^3/ul (1.0-4.8); ABS Monocytes 0.5 10^3/ul (0-0.8); ABS Neutrophils 3.2 10^3/ul (1.5-7.7); ABS Nucleated RBC 0 10^3/ul; Eosinophil % 2.9 % (0-6); Hematocrit 43 % (42-52); Hemoglobin 14.7 g/dl (14.0-18.0); Lymphocyte % 26.9 % (25-47); Mean Corpuscular HGB Conc 34 g/dl (31-36); Mean Corpuscular Hemoglobin 30 pg (27-31); Mean Corpuscular Volume 86 fL (80-94); Mean Platelet Volume 7.7 um3 (7.4-10.4); Nucleated Red Blood Cells % 0.1; Platelet Count 175 10^3/ul (150-450); Red Blood Count 4.98 10^6/ul (4.00-5.40); Red Cell Distribution Width 14 % (10.5-15); White Blood Count 5.3 10^3/ul (3.5-10.8)
[2017-11-21 06:31] LABS: EGFR Non-African American 100.4 (>60)
--- NOTE | 2017-11-21 09:49 | RAD ---
Edited for charges. Indication: Chest pain. Myocardial perfusion scan was performed utilizing 1 day protocol. Rest myocardial perfusion was performed after intravenous injection of 10.6 mCi of technetium 99m tetrofosmin. Treadmill stress study was performed and 25.1 mCi of technetium 99 and tetrofosmin was injected for the stress portion of study.The maximum heart rate achieved was 96% of the maximum predicted value. There is homogeneous distribution of the radiotracer throughout the left ventricle. There is some apical thinning noted. No fixed or reversible perfusion defect is identified. The ejection fraction at stress is 73%. Evaluation of wall motion demonstrates no focal wall motion abnormality. IMPRESSION: Apical thinning. No fixed or reversible perfusion defect is identified. ASSESSMENT: Low risk Based on imaging criteria from ACC/AHA 2002 Guideline Update for the Management of Patients With Chronic Stable Angina Table 23. Noninvasive Risk Stratification. Reference. MTDD
[2017-11-21] MEDS ORDERED: Potassium Chloride LIQUID* 20 MEQ PACKET PO ONE (14:53)
[2017-11-21] MEDS ORDERED: Nitroglycerin 0.2 MG/HR PATCH* (5 MG) TRANSDERM SCH (15:00)
[2017-11-21 15:10] VITALS: BP 116/73
--- NOTE | 2017-11-21 16:36 | CONS ---
CC: Dr. Robins; [facility] CARDIOLOGY CONSULTATION: DATE OF CONSULT: 11/21/17 CONSULTING PROVIDER: ELOY Mcbride REASON FOR EVALUATION: Chest pain, coronary disease, bradycardia. HISTORY OF PRESENT ILLNESS: This is a very pleasant 61-year-old gentleman accompanied by his . He apparently had some problems with bradycardia and fatigue last year and his metoprolol was stopped by Dr. Robins. He had some improvement in his symptoms, but since then has again felt fatigued. He has also gained 20 pounds over the last year. 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 He said that he was more tired the last 2 weeks and has had some intermittent discomfort. He said that about 2 weeks ago he was cutting some logs and struggled to lift 1 larger log and felt a sharp pain in his left arm radiating down to his fingers. Since then , he has had some paresthesias of his left arm not particularly associated with any other symptoms or movements. These are sometimes a little worse in the morning. He also has had some episodes of achiness in his chest. He says these can occur at rest and resolve. He thinks they are better when he is up and active and distracted. He says they can last for a few minutes and resolve. He said that started last Friday about 5 days ago. 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 He said it resolved after about 10 or 15 minutes. He had no syncope or near syncope. He has had some briefer episodes on and off, but because of the arm symptoms and the intermittent chest pain, he decided to come to the ER. His EKG was unchanged. He is ruled out. He also had an evaluation for a possible neurologic etiology. He had a brain MRI on 11/20/17, which revealed possible tiny punctate areas of some cortical white matter signal, which are nonspecific. He had a brain CT, which was negative. Of note, his reports that when he was in the emergency room, he would sometimes rest or fall asleep right before his heart rate hit the mid 40s, he would develop chest tightness which resolved with moving around and getting his heart rate up. This would only last a few seconds. He denies any syncope. No orthopnea. No peripheral edema. He works pretty vigorously at home and at work. His does think that he snores and may have sleep apnea. He falls asleep easily during the day if he is reading or watching television. He denies hypertension or diabetes. He does have hyperlipidemia. PAST MEDICAL HISTORY: He has a history of coronary disease and did have a LAD stent in July 2014. He has hyperlipidemia ( intolerant of statins, on Repatha for the last 2 years). PAST SURGICAL HISTORY: Right knee arthroscopy. MEDICATIONS: He was on: 1. Norvasc 2.5 mg a day. 2. Aspirin 81 mg a day. 3. Plavix 75 mg a day. 4. Repatha 140 mg subcu q.2 weeks. ALLERGIES: Include MORPHINE and intolerance of statins. FAMILY HISTORY: He is 1 of 6 siblings. One brother of coronary disease at 73. His father has a history of heart disease, possible aneurysm and 3 other brothers who have coronary disease. SOCIAL HISTORY: He denies tobacco or alcohol use. He is and accompanied by his . He has 5 adopted children. He drinks 3 to 4 cups of coffee a day. REVIEW OF SYSTEMS: Review of systems x10 was negative except as above. PHYSICAL EXAM: He is a well-developed, well-nourished gentleman, obese, in no apparent distress. Blood pressure 124/77, temperature 98.2, pulse of 65. No significant JVD. Carotids 2+. No bruits. No cervical adenopathy. No thyromegaly. Extraocular muscles intact. Sclerae anicteric. S1, S2 without murmurs, gallops or rubs. Chest was clear. No CVAT. Abdomen: Bowel sounds present. Nontender. Femoral pulses intact without bruits. Distal pulses intact. No edema. Motor strength 5/5 bilaterally. Deep tendon reflexes 2/4. Alert and oriented x3.Skin turgor normal. DIAGNOSTIC STUDIES/LAB DATA: EKG revealed sinus rhythm with no acute changes, similar to the previous of February from Dr. Robins's office. He also had a stress performed this morning. He was able to complete 8 minutes and 44 seconds at 10.1 METs. He had no chest pain. He got to 96% of maximum predicted. He had no significant EKG changes and his nuclear was negative, low risk. Of note, he had a stress echo performed in February 2017, which was also interpreted as normal and at that time he did 9 minutes and 31 seconds of Jose Raul to 11.5 METs and 86% of age-predicted heart rate. He had a Holter monitor performed on 12/26/16, which revealed normal sinus rhythm, mean heart rate of 62, isolated PACs , NSSVT the fastest was 126 beats at 6 beats, rare isolated PVCs, no significant pauses or symptoms. Labs here include a normal CBC. Potassium of 3.8, BUN of 15, creatinine of 0.79. Cholesterol 129, triglycerides 198, LDL 46. IMPRESSION AND PLAN: My impression is that Mr. George has a history of coronary artery disease and arm and chest pain of unclear etiology. The arm pain may be related to radiculopathy given his recent injury and radicular type symptoms. The chest discomfort is a little harder to explain. He does not have it with exertion, but does have it sometimes at rest and sometimes with bradycardia. This raised the possibility of ischemia, perhaps related to a small vessel, given the negative nuclear, or perhaps a false negative nuclear. We did discuss the possibilities and possible treatments including potential for pacemaker if indeed he has a tachybrady syndrome. His old Holter raised possibility of a supraventricular tachycardia and he did have palpations earlier this week. He also has a risk for progression of his sinus node dysfunction and for sleep apnea. For the time being, I would recommend the following: I suggested a trial of nitrates to see if we can improve his symptoms. I would consider reducing his amlodipine because it may be reducing his blood pressure too much at rest. I would suggest maintaining his potassium over 4. He is to decrease caffeine. He drinks 3 to 4 cups a day. I would suggest an evaluation for sleep apnea. I strongly recommend he reduce his weight. He is to follow up with Dr. Robins next week. I would consider an event monitor to characterize his rhythm during symptoms. If indeed he has symptomatic bradycardia or a tachybrady syndrome, he might benefit from a pacemaker. He does not appear to have life-threatening bradyarrhythmias and his stress test was low risk. I would consider discharge and have him return if symptoms recur. Would also consider evaluation for cervical disk disease. [id number]/[facility] #: [id number] [facility]
[2017-11-21] MEDS ORDERED: Nitro Patch/OINT Remove PATCH OFF SCH (21:00)
--- NOTE | 2017-11-22 00:19 | DS ---
AMENDED REPORT NOW INCLUDES COSIGNER DESIGNATION - ESIGNED BEFORE ADJUSTMENTS CC: Teri Cabrera; Dr. Robins; Dr. Pradeep Ross DISCHARGE SUMMARY: DATE OF ADMISSION: 11/20/17 DATE OF DISCHARGE: 11/21/17 PRIMARY CARE PROVIDER: Dr. Teri Cabrera. OUTPATIENT DIRECTOR INFORMATION: Dr. Robins. MY ATTENDING WHILE IN THE HOSPITAL: Dr. Pradeep Ross.* (DICTATED BY ELOY MATA) PRIMARY DISCHARGE DIAGNOSIS: Chest pain. SECONDARY DISCHARGE DIAGNOSES: 1. Coronary artery disease, status post stenting. 2. Hypertension. 2. Hyperlipidemia. STUDIES DONE WHILE IN THE HOSPITAL: Electrocardiogram from 11/20/17 read as intraventricular conduction delay, no ST segment abnormalities, normal axis, no hypertrophy or enlargement. Repeat EKG shows no significant changes. These are consistent with previous studies. Chest x-ray from 11/20/17 read as no active disease. Brain CT from 11/20/[address] read [address] CT evaluation. Brain MRI from 11/20/17 read as no evidence of restriction or diffusion is noted , punctate nonspecific areas of signal abnormality and subcortical white matter scattered in both cerebral hemispheres. Nuclear medicine scan from 11/21/17 read as apical thinning, no fixed or reversible perfusion defect was identified, low risk, ejection fraction of 73%, no wall motion abnormality. MEDICATIONS AT DISCHARGE: 1. Aspirin 81 mg p.o. daily. 2. Repatha 140 mg subcutaneous q.2 weeks. 3. Clopidogrel 75 mg p.o. daily. 4. Tylenol 650 mg p.o. q.4 hours as needed. 5. Nitroglycerin 0.4 mg sublingually q.5 minutes as needed. 6. Amlodipine 2.5 mg p.o. daily. New medications at discharge: 1. Nitroglycerin. 2. Tylenol. Medications discontinued at discharge: 1. Amlodipine 2.5 mg p.o. daily. HOSPITAL COURSE: This is a brief summary of the patient's presentation. For more details, please see the history and physical from [place] [facility] on 11/20. In brief, the patient is a 61-year-old male with a past medical history significant for the above, who presents to the emergency department with 1 day of chest tightness with dyspnea and occasional palpitation. The patient has been having 2 weeks of arm numbness and tingling and a feeling of weakness with no clinically apparent weakness or no other neurological symptoms. The patient was seen in February in this hospital with similar complaints and was discharged to follow up with Dr. Robins for an outpatient stress test. The patient also had a stress test at [facility] in the interim, which was reported as normal. The patient has been continued on his aspirin and Plavix. The patient had some bradycardia in the emergency department, which was associated with some chest tightness per his . The patient is very active and does not have chest pain with activity. The patient states he was a little stressed when his chest pain started. The patient had no significant laboratory abnormalities. The patient had 3 troponins that were 0.00. The patient's LDL cholesterol was 46. The patient's HDL cholesterol was 43.3. The patient was monitored overnight with no recurrences in chest pain outside the emergency department and no significant bradycardia at low 50 beats per minute. The patient had no hypotension. The patient had nuclear medicine stress test , during which he achieved maximal heart rate and it showed no signs of ischemia and did not precipitate chest pain. Due to concern for the patient's bradycardia, the patient was seen in consultation by Dr. Sabas Landon of Cardiology and this patient was discussed with Dr. Robins of Cardiology, who is the patient's outpatient provider. In discussing of the risks and benefits of possible symptomatic bradycardia and/or tachybrady syndrome, which was possibly indicated by the patient's palpitations on presentation as well as bradycardia documented as low as 43 beats per minute as well as possible SVT on Holter monitor from last year. It was discussed the patient that the patient could benefit from pacemaker placement. The patient has also been having increased fatigue as well as sleeping much more, was easily falling asleep and daytime somnolence over the past several months. The patient's states he snores. The patient has never been evaluated for obstructive sleep apnea. The patient did not want to aggressively have a pacemaker placed and want to follow up with his primary employment case manager, Dr. Robins, before making decision and possibly have further cardiac testing. The patient was trialed on a nitrate patch for control of his angina while he was in the hospital, but due to severe headache, the patient did not tolerate this and it was discontinued. The patient's amlodipine was discontinued as there was concern for hypotension and lack of coronary perfusion during these episodes of bradycardia. This medication was to be discussed with his outpatient employment case manager, Dr. Robins, as he also has antianginal effects. The patient drinks quite a bit of caffeine. He was recommended to stop this and to be evaluated for sleep apnea and to engage in weight loss for heart health. The patient was stable and amenable for discharge with instructions to return with recurrent symptoms on . PHYSICAL EXAMINATION ON DAY OF DISCHARGE: General: The patient is a 61-year- old male who appears stated age and sitting comfortably in the bed, in no acute distress. Vital Signs: At the time of discharge, temperature 98.1, pulse rate 61, respiratory rate 20, oxygen saturation 96% on room air, blood pressure 116/ 73. HEENT: Head normocephalic, atraumatic. Sclerae anicteric. No conjunctival injection. Nasal mucosa moist. Oral mucosa moist. No pharyngeal erythema, discharge, or exudate. Neck: Supple, nontender. No lymphadenopathy. No carotid bruit auscultated. No JVD. Respiratory: Clear to auscultation bilaterally. No wheezes, rales or rhonchi. Good air exchange bilaterally. Abdomen: Soft, nontender, nondistended. Bowel sounds present and normoactive in all 4 quadrants. No hepatosplenomegaly. No abdominal bruits auscultated. No hepatojugular reflux. Genitourinary: No suprapubic or CVA tenderness. Skin: Clean, dry, intact. No rash. Neuro: Cranial nerves II through XII intact. Strength preserved in the bilateral upper and lower extremities. Sensation to light touch preserved in the bilateral upper and lower extremities distally and proximally. Tinel's sign positive in the left wrist. Tinel's sign in the left elbow negative. The patient does have shooting pain down his arm intermittently with movement. Spurling's test not performed. Psychiatric: Pleasant and cooperative. LABORATORY DATA: On day of discharge, white blood cell count 5.3, hemoglobin 14.7, hematocrit 43, platelet count 175. INR 0.85, D-dimer less than 200. Sodium 140, potassium 3.8, chloride 109, carbon dioxide 26, anion gap 6, BUN 15 , creatinine 0.79, glucose 102, calcium 8.7. Cholesterol 129, LDL cholesterol 46, HDL cholesterol 43.3, triglycerides 198. DISCHARGE PLAN: The patient will be discharged to home. The patient has been seen in consultation by Cardiology and is not having life-threatening bradycardia, tachybrady syndrome, though there was no documented evidence of tachyarrhythmia. The patient had a low risk stress test without any ischemia, preserved ejection fraction, negative troponins. The patient's vital signs were stable. The patient was unable to tolerate nitrate patch. Due to concern for hypoperfusion of coronary arteries, the patient's amlodipine will be stopped at this time. The patient will discuss this change with his employment case manager, Dr. Robins. The patient was prescribed nitroglycerin tablets as needed for chest pain or tightness. The patient will take these as indicated and return to the hospital. The patient will discuss the indications for a pacemaker, possible long-term monitoring with Dr. Robins on his followup on 11/25/17. The patient will have followup with his primary care provider on 12/02/17. The patient at that time should discuss possible imaging of his neck or conservative treatment with physical therapy. The patient should avoid NSAID use due to coronary artery disease. The patient should also have referral for possible sleep apnea due to predisposing risk factors, snoring , and high risk for recurrent [place] due to known severe coronary artery disease. The patient will return to the hospital for alarming symptoms such as chest pain , shortness of breath, or syncope. The patient should have a heart- healthy diet. The patient should abstain from caffeine and alcohol. The patient should engage in activity as tolerated. The patient should modify his diet and exercise regimen for weight loss. TIME SPENT: Approximately 60 minutes was spent on this discharge, 30 of which was spent [id number] with the patient obtaining history and physical and discussing treatment plan. ELOY MATA [id number]/[facility] #: [id number] GISELLE
== END 2017-11-21 17:39 | disposition home or self-care (01) ==
LOC: ED 07:13 → MEDTELE 12:06
PROVIDERS: ADMIT Internal Medicine; ATTEND Internal Medicine
DX: R07.9 Chest pain, unspecified (principal); R53.1 Weakness; I25.10 Atherosclerotic heart disease of native coronary artery without angina pectoris; Z95.5 Presence of coronary angioplasty implant and graft; I10 Essential (primary) hypertension; E78.5 Hyperlipidemia, unspecified; Z79.899 Other long term (current) drug therapy; Z79.82 Long term (current) use of aspirin; Z88.8 Allergy status to other drugs, medicaments and biological substances; Z88.5 Allergy status to narcotic agent; Z79.01 Long term (current) use of anticoagulants; R94.31 Abnormal electrocardiogram [ECG] [EKG]; R00.1 Bradycardia, unspecified
CPT/HCPCS: 36415; 70450; 70551; 71045; 78452; 80048; 80053; 80061; 83605; 83735; 84443; 84484; 85025; 85379; 85610; 93005; 93017; 93306; 99284; A9270-GY; A9502; C8929; G0378